=== PATIENT | male | born 1985 | race Caucasian/White ===

== ENCOUNTER 2023-08-14 21:20 | Inpatient (IN) | payer BC, OTHER ==
--- NOTE | 2023-08-14 22:21 | RAD REPORT ---
EXAM DESCRIPTION: Shivam Single View08/14/2023 10:05 pm CLINICAL HISTORY: Syncope COMPARISON: February 2020. FINDINGS: The lungs appear clear of acute infiltrate. The heart is normal size Postsurgical changes involve spine IMPRESSION: No acute abnormalities displayed
--- NOTE | 2023-08-14 22:34 | RAD REPORT ---
EXAM DESCRIPTION: CT - Head Brain Wo Cont - 08/14/2023 10:20 pm CLINICAL HISTORY: Syncope COMPARISON: February 2023 TECHNIQUE: Computed axial tomography of the head was obtained. IV contrast was not requested. All CT scans are performed using dose optimization technique as appropriate and may include automated exposure control or mA/KV adjustment according to patient size. FINDINGS: An intracranial bleed is not seen The ventricles are normal in caliber No significant hypodense areas within the brain visualized No extra-axial fluid collection is noted. Fluid within the sinuses/ mastoids is not seen IMPRESSION: No acute intracranial abnormality is seen If patient's symptoms persist MRI of the brain would be recommended
[2023-08-14 22:43] LABS: Absolute Lymphocytes (CBC) 0.6 K/uL (0.7-4.9); Lymphocytes % 2.6 % (15.3-44.8); MCV 86.5 fL (80-100); MPV 7.7 fL (7.6-11.3); Platelets 291 thou/uL (152-406); RBC Red Blood Cell Count 5.31 M/uL (4.33-5.43)
[2023-08-14 22:45] LABS: Protime INR 1.14
[2023-08-14 23:02] LABS: Albumin 3.4 g/dL (3.4-5.0); Bilirubin Direct 0.1 mg/dL (0-0.2); Bilirubin Indirect, Calculated 0.3 mg/dL (0.2-0.8); Bilirubin Total 0.4 mg/dL (0.2-1.0); Magnesium 2.3 mg/dL (1.6-2.4); Troponin High Sensitivity 3.8 pg/mL (<58.9)
--- NOTE | 2023-08-14 23:44 | P.HP ---
Certification for Inpatient Patient admitted to: Inpatient With expected LOS: <2 Midnights Patient will require the following post-hospital care: None Practitioner: I am a practitioner with admitting privileges, knowledge of patient current condition, hospital course, and medical plan of care. Services: Services provided to patient in accordance with Admission requirements found in Title 42 Section 412.3 of the Code of Federal Regulations Patient History Date of Service: 08/15/23 Reason for admission: Lethargic, sepsis History of Present Illness: 38-year-old male with a past medical history of cerebral palsy, scoliosis with lumbar instrumentation, spasticity, constipation presents to the emergency room with syncopal episode. Father is at bedside is primary historian reports patient is wheelchair-bound, is normally alert and oriented, patient has a baclofen pump for spasticity, father reports patient takes Adderall to help increase alertness. Father reports patient was in bed and was difficult to arouse this evening. No reported recent infection, chills, dysuria, chest pain, shortness of breath, cough. Father report reports patient eats too quickly occasionally coughs with meals due to eating too fast. Patient is alert oriented x3 on evaluation. Scoliosis with lumbar instrumentation. Noted internal baclofen pump for spasticity. Patient has returned to baseline. Father reports called EMS. ER laboratory evaluation BP 103 / 66; Pulse 103; Resp 18; Temp 98.1; Pulse Ox 98% 0 Rate is 99 beats/min. Rhythm is regular, Normal Sinus Rhythm. QRS [place] is Normal. SD interval is shortened. QRS interval is normal. QT interval is normal. No Q waves. T waves are Normal. No ST changes noted. Clinical impression: No evidence of ischemia. Plan to admit for sepsis, syncopal episode. Sepsis, unspecified organism, cerebral palsy, physical deconditioning, complications of immobility. Laboratory evaluation leukocytosis WBCs 24.10 early left shift 91.7, CMP mild hyponatremia at 135, mild hypocalcemia 8.4, lactic was normal at 1.9, UA is pending, SARS-CoV-2 was negative chest x-ray no acute abnormality, CT of the head, no acute abnormality noted. Allergies Penicillins Adverse Reaction (Verified 03/09/21 14:28) Nausea/Vomiting Home Medications: Dextroamphetamine/Amphetamine [Adderall 20 mg Tablet] 20 mg PO BID 03/12/21 - Past Medical/Surgical History Diabetic: No -: Cerebral Palsy -: Paraplegia - Social History Smoking Status: Never smoker Alcohol use: No CD- Drugs: No Caffeine use: No Place of Residence: Home Review of Systems 10-point ROS is otherwise unremarkable Physical Examination - Physical Exam General: Alert, In no apparent distress, Other (Cerebral palsy, responsive verbal,) HEENT: Atraumatic, Normocephalic, PERRLA Neck: Supple, 2+ carotid pulse no bruit, JVD not distended Respiratory: Clear to auscultation bilaterally, Normal air movement Cardiovascular: No edema, Normal pulses, Regular rate/rhythm Capillary refill: <2 Seconds Gastrointestinal: Normal bowel sounds, Soft and benign Musculoskeletal: No clubbing, No swelling, Scoliosis, Other (Total assist, complete bedrest or wheelchair-bound,) Neurological: Abnormal speech, Abnormal strength, Abnormal tone (Spasticity with internal baclofen pump) - Studies Laboratory Data (last 24 hrs) 08/14/23 08/14/23 08/14/23 22:27 22:27 22:27 WBC 24.10 H Hgb 15.6 Hct 46.0 Plt Count 291 PT 12.5 INR 1.14 Sodium 137 Potassium 4.0 BUN 15 Creatinine 0.70 Glucose 135 H Magnesium 2.3 Total Bilirubin 0.4 AST 39 H ALT 60 Alkaline Phosphatase 71 Assessment and Plan - Plan Assessment and plan Sepsis without shock unknown source of infection acute Hypocalcemia acute Hyponatremia acute Cerebral palsy, total care chronic physical deconditioning, complications of immobility. Chronic Spasticity on the baclofen pump Scoliosis-spinal instrumentation Wheelchair dependent Constipation Assessment and plan Sepsis without shock unknown source of infection Blood cultures, urine cultures, IV antibiotics, infectious disease consult BP 103 / 66; Pulse 103; Resp 18; Temp 98.1; Pulse Ox 98% 0 Rate is 99 beats/min. Rhythm is regular, Normal Sinus Rhythm. QRS [place] is Normal. SD interval is shortened. QRS interval is normal. QT interval is normal. No Q waves. T waves are Normal. No ST changes noted. Clinical impression: No evidence of ischemia. WBCs 24.10 early left shift 91.7, lactic normal 1.9 Trend cultures UA is pending, SARS-CoV-2 was negative chest x-ray no acute abnormality, CT of the head, no acute abnormality noted. Hypocalcemia Hyponatremia CMP mild hyponatremia at 135, mild hypocalcemia 8.4 Trend electrolytes replace as needed Cerebral palsy Constipation Spasticity on the baclofen pump, as needed stool softeners Scoliosis-spinal instrumentation Wheelchair dependent Fall precautions, total care, set up for meals Soft diet Full code DVT SCDs Discharge Plan: Home Plan to discharge in: 48 Hours - Advance Directives Does patient have a Living Will: No Does patient have a Durable POA for Healthcare: No - Code Status/Comfort Care Code Status Assessed: Yes Code Status: Full Code Physician Review: Patient Assessed, Agree with Above Assessment and Plan Critical Care: No Time Spent Managing Pts Care (In Minutes): 50
[2023-08-14] MEDS ORDERED: NA CHLORIDE 0.9% 250 ML ONE (23:47)
[2023-08-14] MEDS ORDERED: VANCOMYCIN 1 GM/VIAL ONE (23:47)
[2023-08-14] MEDS ORDERED: NA CHLORIDE 0.9% 50 ML ONE (23:47)
[2023-08-14] MEDS ORDERED: CEFTRIAXONE 1000 MG/VIAL ONE (23:47)
[2023-08-14] MEDS ORDERED: NA CHLORIDE 0.9% 1,000 ML ONE (23:47)
[2023-08-14] MEDS ORDERED: D5.45NS W/KCL 20MEQ 1,000 ML IV ONE (23:48)
--- NOTE | 2023-08-15 00:07 | ER ---
Nurse's Notes [facility] Name: Johann Garrison Age: 38 yrs Sex: Male : 1985 Arrival Date: 08/14/2023 Time: 21:20 Bed 5 Private MD: Diagnosis: Sepsis, unspecified organism;Syncope, episode of unresponsiveness, cerebral palsy, physical deconditioning, complications of immobility Presentation: 08/14 21:25 Chief complaint: EMS states: WITNESSED SYNCOPE AT HOME. Coronavirus screen: At this bp time, the client does not indicate any symptoms associated with coronavirus-19. Ebola Screen: No symptoms or risks identified at this time. Initial Sepsis Screen: Does the patient meet any 2 criteria? No. Patient's initial sepsis screen is negative. Does the patient have a suspected source of infection? No. Patient's initial sepsis screen is negative. Risk Assessment: Do you want to hurt yourself or someone else? Patient reports no desire to harm self or others. Onset of symptoms was August 14, 2023 at 21:00. 21:25 Method Of Arrival: EMS: [facility] bp 21:25 Acuity: VINAY 3 bp Triage Assessment: 21:26 General: Appears in no apparent distress. Behavior is appropriate for age. Pain: Denies bp pain. Neuro: Level of Consciousness is awake, alert, obeys commands, Oriented to Appropriate for age. Historical: - Allergies: 21:26 PENICILLINS; bp - Home Meds: 21:26 baclofen pump LLQ [Active]; Adderall XR Oral [Active]; bp - PMHx: 21:26 scoliosis; Cerebral palsy; bp - PSHx: 21:26 back sx; bp - Immunization history:: Adult Immunizations up to date. - Social history:: Smoking status: Patient denies any tobacco usage or history of. - Family history:: not pertinent. Screenin/05 00:54 [facility] ED Fall Risk Assessment (Adult) History of falling in the last 3 months, jb4 including since admission No falls in past 3 months (0 pts) Confusion or Disorientation No (0 pts) Score/Fall Risk Level 0 - 2 = Low Risk Oriented to surroundings, Maintained a safe environment. Abuse screen: Denies threats or abuse. Nutritional screening: No deficits noted. Tuberculosis screening: No symptoms or risk factors identified. Assessment: 08/14 22:38 Reassessment: Pt resting in bed with family at the bedside. Respirations are even and jb4 unlabored with no s/s of pain or distress noted. Vital Signs: 21:24 BP 103 / 66; Pulse 103; Resp 18; Temp 98.1; Pulse Ox 98% on R/A; oe 21:25 BP 110 / 60; Pulse 100; Resp 20; Temp 97.4; Pulse Ox 100% ; bp 22:39 BP 91 / 61; Pulse 101; Resp 15; Pulse Ox 98% on R/A; jb4 23:00 BP 92 / 60; Pulse 99; Resp 16; Pulse Ox 97% on R/A; jb4 10 00:54 BP 124 / 74; Pulse 102; Resp 18; Pulse Ox 99% on R/A; jb4 ED Course: 08/14 21:21 Patient arrived in ED. rv1 21:23 Prince Rodriguez, RN is Primary Nurse. bp 21:26 Triage completed. bp 21:26 Arm band placed on. bp 21:29 Declan Boucher MD is Attending Physician. sp4 22:05 XRAY Chest (1 view) In Process Unspecified. EDMS 22:21 CT Head Brain wo Cont In Process Unspecified. EDMS 22:38 Initial lab(s) drawn, by me, sent to lab. Inserted saline lock: 24 gauge in right hand, jb4 using aseptic technique. Blood collected. 08/15 00:05 Augusto Hensley is Hospitalizing Provider. sp4 00:54 Patient has correct armband on for positive identification. Bed in low position. Call jb4 light in reach. Side rails up X 1. Client placed on continuous cardiac and pulse oximetry monitoring. NIBP monitoring applied. 00:54 No provider procedures requiring assistance completed. Patient admitted, IV remains in jb4 place. Administered Medications: 08/14 23:44 Drug: NS 0.9% IV 1000 ml IV at 1 bolus Per protocol; 1000 mL bolus Route: IV; Rate: 1 jb4 bolus; Site: right hand; 23:45 Drug: Rocephin - Rocephin (cefTRIAXone) IVPB 1 grams IVPB once over 30 mins; (mix in 50 jb4 mL NS) Route: IVPB; Infused Over: 30 mins; Site: right hand; 08/15 00:42 Drug: vancoMYCIN IVPB 1 grams IVPB once over 2 hrs Route: IVPB; Infused Over: 2 hrs; jb4 Site: right hand; 01:40 Not Given (Fluids sent up with Ptt): d5-1/2 ns with kcl20 meq/l 1000 ml IV at 100 ml/hr jb4 continuous Outcome: 00:06 Decision to Hospitalize by Provider. sp4 01:25 Admitted to Med/surg accompanied by tech, via stretcher, room 218, with chart, Report jb4 called to N[place]omy 01:25 Condition: stable 01:25 Discharge instructions given to family, Instructed on the need for admit, Demonstrated understanding of instructions, 01:26 Patient left the ED. jb4 Signatures: Dispatcher [employer] EDMannie Padilla, RN RN jb4 Doug Winkler Brian, RN RN Kasie Ardon rv1 Declan Boucher MD MD sp4 Corrections: (The following items were deleted from the chart) 01:26 01:25 Admitted to Med/surg accompanied by tech, via stretcher, room 219, with chart, jb4 Report called to Nahomy jb4
--- NOTE | 2023-08-15 00:07 | EDPHYS ---
Physician Documentation [facility] Name: Johann Garrison Age: 38 yrs Sex: Male : 1985 Arrival Date: 08/14/2023 Time: 21:20 Bed 5 Private MD: ED Physician Declan Boucher HPI: 08/14 21:29 This 38 yrs old Male presents to ER via EMS with complaints of syncope. sp4 22:30 38-year-old male with a history of cerebral palsy, wheelchair-bound, completely sp4 dependent on caretakers, very minor use of bilateral hands, presents with report of syncope and unresponsiveness at home at 8:30 PM lasting several minutes. Patient's father noted that patient was unresponsive after he is evening toilet and teeth brushing were complete. Patient was then given [id number] respirations and chest compressions which brought about alertness. At this time patient is verbal and has no complaints. Patient is alert and oriented x3. Mental status is normal at this time as reported by the patient's parents. Patient has several different physicians total of 7 physicians could take care of him. Patient has baclofen pump for muscle spasticity which is implanted underneath left lower abdominal skin. Baclofen pump leads directly to the spinal canal. Patient also takes Adderall daily to counteract drowsiness caused by baclofen. No other medications reported. Patient had similar episode on 02/19/2023, when he was seen at this emergency room and released home after work-up was normal. . Historical: - Allergies: 21:26 PENICILLINS; bp - Home Meds: 21:26 baclofen pump LLQ [Active]; Adderall XR Oral [Active]; bp - PMHx: 21:26 scoliosis; Cerebral palsy; bp - PSHx: 21:26 back sx; bp - Immunization history:: Adult Immunizations up to date. - Social history:: Smoking status: Patient denies any tobacco usage or history of. - Family history:: not pertinent. ROS: 22:30 Constitutional: Negative for fever, chills, and weight loss, positive for syncopal sp4 episode and unresponsiveness Eyes: Negative for injury, pain, redness, and discharge, 22:30 All other systems are negative, Exam: 22:30 Constitutional: This is a permanently paralyzed male, awake, alert, and in no acute sp4 distress. Patient has multiple contractures to lower extremities and diffuse muscular atrophy secondary to immobility, stigmata of cerebral palsy, large spinal scar from prior scoliosis Suero ghulam fixation. Patient is verbal able to communicate his name date of and location. Patient is able to answer basic questions. Mental status reported to be normal by patient's parents. Patient has signs of severe physical debility secondary to cerebral palsy, no signs of pressure sores, incontinent of bowel and bladder, wears depends. Head/Face: Normocephalic, atraumatic. Eyes: Pupils equal round and reactive to light, extra-ocular motions intact. Lids and lashes normal. Conjunctiva and sclera are not injected. Cornea within normal limits. Periorbital areas with no swelling, redness, or edema. ENT: Nares patent. No nasal discharge, no septal abnormalities noted. Tympanic membranes are normal and external auditory canals are clear. Oropharynx with no redness, swelling, or masses, exudates, or evidence of obstruction, uvula midline. Mucous membranes moist. Neck: Trachea midline, no thyromegaly or masses palpated, and no cervical lymphadenopathy. Supple, range of motion somewhat restricted within parameters of chronic immobility Chest/axilla: Normal chest wall appearance and motion. Nontender with no deformity. No lesions are appreciated. Cardiovascular: Regular rate and rhythm with a normal S1 and S2. No gallops, murmurs, or rubs. Normal PMI, no JVD. No pulse deficits. Respiratory: Lungs have equal breath sounds bilaterally, clear to auscultation and percussion. No rales, rhonchi or wheezes noted. No increased work of breathing, no retractions or nasal flaring. Abdomen/GI: Soft, non-tender, with normal bowel sounds. No distension or tympany. No guarding or rebound. No evidence of tenderness throughout. Left lower abdominal quadrant contains implanted baclofen pump. Back: No spinal tenderness. No costovertebral tenderness. Extensive scar from prior spinal surgery via Suero ghulam fixation of scoliosis Male : Normal genitalia with no discharge or lesions. Circumcised male, no inguinal hernias, normal femoral pulses, mild abrasion to the suprapubic area Skin: Warm, dry with normal turgor. Normal color with no rashes, no lesions, and no evidence of cellulitis. MS/ Extremity: Pulses equal, no cyanosis. Diffuse muscular atrophy secondary to immobility, bilateral upper and lower extremity contractures secondary to cerebral palsy and immobility. Neuro: Awake and alert, GCS 15, oriented to person, place, and situation, exam limited secondary to cerebral palsy and prolonged immobility, no new neurologic deficits have been reported Psych: Awake, alert, with orientation to person, place , Behavior, mood, and affect are within normal limits 22:30 ECG was reviewed by the Attending Physician. [id number], he is normal sinus rhythm with a sp4 rate of 99, there is short OK, otherwise EKG is normal, no ectopy, no ST elevation or depression Vital Signs: 21:24 BP 103 / 66; Pulse 103; Resp 18; Temp 98.1; Pulse Ox 98% on R/A; oe 21:25 BP 110 / 60; Pulse 100; Resp 20; Temp 97.4; Pulse Ox 100% ; bp 22:39 BP 91 / 61; Pulse 101; Resp 15; Pulse Ox 98% on R/A; jb4 23:00 BP 92 / 60; Pulse 99; Resp 16; Pulse Ox 97% on R/A; jb4 08/15 00:54 BP 124 / 74; Pulse 102; Resp 18; Pulse Ox 99% on R/A; jb4 MDM: 08/14 21:51 Patient medically screened. sp4 23:26 Differential Diagnosis altered mental status, sepsis, flu, Syncope, seizure . Data sp4 reviewed: vital signs, nurses notes, EMS record, old medical records, lab test result(s), EKG, radiologic studies. ED course: EXAM DESCRIPTION: [place] Single View08/14/2023 10:05 pm CLINICAL HISTORY: Syncope COMPARISON: February 2020. FINDINGS: The lungs appear clear of acute infiltrate. The heart is normal size Postsurgical changes involve spine IMPRESSION: No acute abnormalities displayed. ED course: CT - EXAM DESCRIPTION: CT - Head Brain Wo Cont - 08/14/2023 10:20 pm CLINICAL HISTORY: Syncope COMPARISON: February 2023 TECHNIQUE: Computed axial tomography of the head was obtained. IV contrast was not requested. All CT scans are performed using dose optimization technique as appropriate and may include automated exposure control or mA/KV adjustment according to patient size. FINDINGS: An intracranial bleed is not seen The ventricles are normal in caliber No significant hypodense areas within the brain visualized No extra-axial fluid collection is noted. Fluid within the sinuses/ mastoids is not seen IMPRESSION: No acute intracranial abnormality is seen If patient's symptoms persist MRI of the brain would be recommended.. 08/14 21:29 Order name: Basic Metabolic Panel; Complete Time: 23:05 sp4 08/14 21:29 Order name: CBC with Diff; Complete Time: 23:05 4 08/14 21:29 Order name: LFT's; Complete Time: 23:05 4 08/14 21:29 Order name: Magnesium; Complete Time: 23:05 sp4 08/14 21:29 Order name: NT PRO-BNP; Complete Time: 23:05 4 08/14 21:29 Order name: PT-INR; Complete Time: 23:05 [facility] 08/14 21:29 Order name: Troponin HS; Complete Time: 23:05 [facility] 08/14 21:50 Order name: Lactate w/ 2H reflex if indic.; Complete Time: 23:05 [facility] 08/14 21:51 Order name: Creatine Phosphokinase; Complete Time: 23:05 [facility] 08/14 23:10 Order name: Urinalysis W/Microscopic sp 08/14 23:11 Order name: Blood Culture Adult (2) [facility] 08/14 23:20 Order name: Procalcitonin; Complete Time: 00:06 [facility] 08/14 23:20 Order name: CRP; Complete Time: 00:06 [facility] 08/14 23:21 Order name: COVID-19 SARS RT PCR; Complete Time: 00:06 [facility] 08/14 23:21 Order name: Influenza Screen (a \T\ B) [facility] 08/14 23:46 Order name: Lactate w/ 2H reflex if indic. [facility] 08/14 21:29 Order name: XRAY Chest (1 view); Complete Time: 23:05 4 08/14 21:51 Order name: CT Head Brain wo Cont; Complete Time: 23:05 4 08/14 21:29 Order name: EKG; Complete Time: 21:30 sp4 08/14 23:38 Order name: CONS Physician Consult [facility] 08/14 21:29 Order name: Cardiac monitoring; Complete Time: 22:14 4 08/14 21:29 Order name: EKG - Nurse/Tech; Complete Time: 22:14 sp4 08/14 21:29 Order name: IV Saline Lock; Complete Time: 22:37 sp4 08/14 21:29 Order name: Labs collected and sent; Complete Time: 22:37 sp4 08/14 21:29 Order name: O2 Per Protocol; Complete Time: 22:14 sp4 08/14 21:29 Order name: O2 Sat Monitoring; Complete Time: 22:14 sp4 08/14 23:19 Order name: Cath; Complete Time: 00:55 sp4 EC:30 Rate is 99 beats/min. Rhythm is regular, Normal Sinus Rhythm. QRS [place] is Normal. OK sp4 interval is shortened. QRS interval is normal. QT interval is normal. No Q waves. T waves are Normal. No ST changes noted. Clinical impression: No evidence of ischemia. Interpreted by me. Administered Medications: 23:44 Drug: NS 0.9% IV 1000 ml IV at 1 bolus Per protocol; 1000 mL bolus Route: IV; Rate: 1 jb4 bolus; Site: right hand; 23:45 Drug: Rocephin - Rocephin (cefTRIAXone) IVPB 1 grams IVPB once over 30 mins; (mix in 50 jb4 mL NS) Route: IVPB; Infused Over: 30 mins; Site: right hand; 08/15 00:42 Drug: vancoMYCIN IVPB 1 grams IVPB once over 2 hrs Route: IVPB; Infused Over: 2 hrs; jb4 Site: right hand; 01:40 Not Given (Fluids sent up with Ptt): d5-1/2 ns with kcl20 meq/l 1000 ml IV at 100 ml/hr jb4 continuous Disposition Summary: 08/15/23 00:06 Hospitalization Ordered Notes: Hospitalization Status: Inpatient Admission sp4 Provider: Augusto Hensley spSvetlana Location: Telemetry/MedSurg (Inpatient) sp4 Condition: Fair sp4 Problem: new sp4 Symptoms: have improved sp4 Bed/Room Type: Standard sp4 Room Assignment: 218(08/15/23 00:10) Diagnosis - Sepsis, unspecified organism sp4 - Syncope, episode of unresponsiveness, cerebral palsy, physical deconditioning, sp4 complications of immobility Forms: - Medication Reconciliation Form sp4 - SBAR form sp4 - Leadership Thank You Letter sp4 Signatures: Dispatcher [employer] Evita Forbes RN RN cg Bryson, James, RN RN jb4 Prince Rodriguez RN RN bp Declan Boucher MD MD sp4 Corrections: (The following items were deleted from the chart) 00:10 00:06 sp4
[2023-08-15] MEDS ORDERED: ONDANSETRON 4 MG/2 ML VIAL IV PRN (01:17)
[2023-08-15 01:33] LABS: Specific Gravity 1.026 (1.005-1.030); Urine Bacteria <20 /HPF (<20); Urine Bilirubin NEGATIVE (Negative); Urine Blood Negative (Negative); Urine Clarity Extremely Turbid (Clear); Urine Color Yellow (Yellow); Urine Glucose NEGATIVE (Negative); Urine Mucus Slight /HPF (None Seen); Urine Protein TRACE (Negative); Urine Urobilinogen Normal (Normal); Urine pH 7.5 (5.0-7.0)
[2023-08-15 01:38] VITALS: O2SAT 99
[2023-08-15 02:26] VITALS: BMI 18.6
[2023-08-15] MEDS: PIPER TAZO 3.375 GM in NA CHLORIDE 0.9% 100 ML IV SCH ×2 (03:47→09:00)
[2023-08-15] MEDS: NA CHLORIDE 0.9% 1,000 ML IV SCH ×2 (03:48→23:01)
[2023-08-15 04:22] LABS: Bilirubin Total 0.4 mg/dL (0.2-1.0); Magnesium 2.1 mg/dL (1.6-2.4); Phosphorus 3.4 mg/dL (2.5-4.9); Potassium 3.7 mEq/L (3.5-5.1); Protein, Total 6.3 g/dL (6.4-8.2)
--- NOTE | 2023-08-15 08:37 | P.CNS ---
Date of Consult: 08/15/23 Reason for Consult: leukocytosis Chief Complaint: Lethargic, sepsis History of Present Illness: Patient is a 38 yo male with a past medical history of cerebral palsy, scoliosis with lumbar instrumentation who presented to the ED following a syncopal episode. CT head without acute findings. Leukocytosis, tachycardic, altered mental status/lethargy. Patient was admitted for sepsis, syncopal episode. Infectious disease was consulted. Allergies Penicillins Adverse Reaction (Verified 08/15/23 01:58) Nausea/Vomiting Home medications list reviewed: Yes Home Medications: Dextroamphetamine/Amphetamine [Adderall 20 mg Tablet] 20 mg PO BID 03/12/21 - Past Medical/Surgical History Diabetic: No -: Cerebral Palsy -: Paraplegia - Social History Alcohol use: No CD- Drugs: No Caffeine use: No Place of Residence: Home Review of Systems is unable to be obtained Physical Examination Temp Pulse Resp BP Pulse Ox 98.1 F 95 H 16 98/55 L 96 08/15/23 04:00 08/15/23 04:00 08/15/23 04:00 08/15/23 04:00 08/15/23 04:00 General: In no apparent distress Neck: Supple, JVD not distended Respiratory: Clear to auscultation bilaterally, Normal air movement, Other (on room air) Cardiovascular: No edema, Normal pulses, Regular rate/rhythm Gastrointestinal: Normal bowel sounds, Soft and benign Musculoskeletal: Scoliosis, Other (wheelchair/bedbound) Integumentary: Other (internal baclofen pump left lower abdomen) Neurological: Abnormal speech Laboratory Data - Reviewed Microbiology Data - Reviewed Imagings Data: - Reviewed Conclusions/Impression: Problem List Leukocytosis Cerebral palsy Scoliosis with lumbar instrumentation physical deconditioning Mild PCM - Leukocytosis (WBC 24.1) - Afebrile - Urinalysis 08/15: extremely turbid, LE 250, RBC 11-20, WBC >50 - Urine culture 08/15: pending - Blood cultures 08/14: pending - Negative Covid, negative influenza A&B - Chest XR 08/14: "No acute abnormalities displayed" - Head CT 08/14: "No acute intracranial abnormality is seen" - Currently on Rocephin (08/15) Recommendations - Continue Rocephin for now. - Awaiting blood and urine culture results. will adjust antibiotics as appropriate. - Monitor WBC and fever trends - Supportive care and nutritional supplementation Case discussed with Mouna Cade
[2023-08-15] MEDS: DOCUSATE NA 50 MG/5 ML UCUP PO SCH ×2 (09:00→23:02)
[2023-08-15] MEDS: AMPHETAMINE PO SCH ×2 (09:00→21:00)
[2023-08-15] MEDS: DEXTROAMPHETAMINE PO SCH ×2 (09:00→21:00)
--- NOTE | 2023-08-15 13:27 | P.PN ---
Subjective Date of Service: 08/15/23 Chief Complaint: Lethargic, sepsis Patient with cerebral palsy and not able to give any subjective complaint. He is awake and interactive, gives yes or no answers. No fever since admission. Physical Examination - Vital Signs Temperature: 98.1 F Blood Pressure: 98/55 Pulse: 95 Respirations: 16 Pulse Ox (%): 96 - Studies Laboratory Data (last 24 hrs) 08/14/23 08/14/23 08/14/23 22:27 22:27 22:27 WBC 24.10 H Hgb 15.6 Hct 46.0 Plt Count 291 PT 12.5 INR 1.14 Sodium 137 Potassium 4.0 BUN 15 Creatinine 0.70 Glucose 135 H Magnesium 2.3 Total Bilirubin 0.4 AST 39 H ALT 60 Alkaline Phosphatase 71 Microbiology Data (last 24 hrs): 08/14/23 23:28 Blood - Blood Anaerobic Blood Culture - Final 08/14/23 23:28 Nasopharnyx Influenza Type A Antigen Screen - Final 08/14/23 23:28 Nasopharnyx Influenza Type B Antigen Screen - Final Assessment And Plan - Plan Physical Exam General: Awake, In no apparent distress. Neck: Supple, JVD not distended Respiratory: Clear to auscultation bilaterally, Normal air movement Cardiovascular: No edema, Normal pulses, Regular rate/rhythm Gastrointestinal: Normal bowel sounds, Soft and benign Musculoskeletal: No clubbing, No swelling, Scoliosis, Other (Total assist, complete bedrest or wheelchair-bound,) Neurological: Abnormal speech, cerebral palsy with quadriplegia. Diagnosis Sepsis without shock. UTI Cerebral palsy Spastic quadriplegia. Scoliosis-spinal instrumentation Wheelchair dependent Constipation Assessment and plan Sepsis without shock/metabolic encephalopathy Likely secondary to UTI. Blood cultures, urine cultures are pending. Continue broad-spectrum antibiotics. Monitor CBC to follow leukocytosis. Cerebral palsy Constipation Spasticity on the baclofen pump Constipation prophylaxis with stool softener Scoliosis-spinal instrumentation Wheelchair dependent Fall precautions. Soft diet Full code DVT SCDs Discharge Plan: Home
[2023-08-15] MEDS: CEFTRIAXONE 1,000 MG in NA CHLORIDE 0.9% 50 ML IVPB SCH (14:00)
--- NOTE | 2023-08-15 16:58 | EKG ---
Test Date: 2023-08-14 Test Time: 22:09:03 Chief Operator Synthesis: TORRIE MEASUREMENT RESULTS: Intervals: Rate: 99 TN: 110 QRSD: 76 QT: 344 QTc: 441 [place]: P: 26 TN: 110 QRS: 51 T: 50 INTERPRETIVE STATEMENTS: Sinus rhythm with short TN Possible Inferior infarct, age undetermined Abnormal ECG Compared to ECG 02/19/2023 23:09:13 Short TN interval now present Myocardial infarct finding now present Left-axis deviation no longer present T-wave abnormality no longer present Electronically Signed On 08-15-23 16:56:17 CDT by Carlos Enrique Hwang
[2023-08-16 04:21] LABS: Absolute Lymphocytes (CBC) 2.1 K/uL (0.7-4.9); Hematocrit 37.3 % (39.6-49.0); Lymphocytes % 11.5 % (15.3-44.8); MCV 86.3 fL (80-100); MPV 7.8 fL (7.6-11.3); Platelets 257 thou/uL (152-406); RBC Red Blood Cell Count 4.32 M/uL (4.33-5.43)
[2023-08-16 04:39] LABS: Magnesium 2.1 mg/dL (1.6-2.4); Phosphorus 3.3 mg/dL (2.5-4.9); Potassium 3.6 mEq/L (3.5-5.1)
--- NOTE | 2023-08-16 08:36 | P.PN ---
Date of Service: 08/16/23 Chief Complaint: Lethargic, sepsis Subjective: Improving. Patient seen and examined in room. Mother and caregiver at bedside. No acute events reported overnight. Physical Examination Temp Pulse Resp BP Pulse Ox 98.3 F 87 18 120/71 94 08/16/23 04:00 08/16/23 04:00 08/16/23 04:00 08/16/23 04:00 08/16/23 04:00 General: In no apparent distress Neck: Supple, JVD not distended Respiratory: Clear to auscultation bilaterally, Normal air movement. Unlabored respirations on room air. Cardiovascular: No edema, Normal pulses, Regular rate/rhythm Gastrointestinal: Normal bowel sounds, Soft and benign Musculoskeletal: wheelchair/bedbound Integumentary: internal baclofen pump left lower abdomen Neurological: cerebral palsy Laboratory Data - Reviewed Microbiology Data - Reviewed Imagings Data: - Reviewed Medications List: Reviewed Assessment and Plan Problem List Sepsis secondary to urinary tract infection Cerebral palsy Scoliosis with lumbar instrumentation physical deconditioning Mild PCM Sepsis secondary to urinary tract infection - Leukocytosis improving (WBC 24.1 -> 18.4) - Afebrile. Tmax 99 F - Urinalysis 08/15: extremely turbid, LE 250, RBC 11-20, WBC >50 - Urine culture 08/15: 3+ gram negative rods ; colony count >100,000 CFU/mL - Blood cultures 08/14: in process - Currently on Rocephin (08/15) - Negative Covid, negative influenza A&B - Chest XR 08/14: "No acute abnormalities displayed" - Head CT 08/14: "No acute intracranial abnormality is seen" Recommendations - UTI: Continue antibiotic therapy for 5-7 days. Currently on Rocephin,continue for now. - Awaiting blood and urine culture results. will adjust antibiotics as appropriate. - Monitor WBC and fever trends - Supportive care and nutritional supplementation - Pressure offloading measures. Turn patient Q2H. Low air-loss mattress. Case discussed with Mouna Cade
[2023-08-16] MEDS: AMPHETAMINE PO SCH ×2 (09:00→21:00)
[2023-08-16] MEDS: DEXTROAMPHETAMINE PO SCH ×2 (09:00→21:00)
[2023-08-16] MEDS: DOCUSATE NA 50 MG/5 ML UCUP PO SCH ×2 (09:00→21:27)
[2023-08-16] MEDS: CEFTRIAXONE 1,000 MG in NA CHLORIDE 0.9% 50 ML IVPB SCH (10:00)
[2023-08-16] MEDS: NA CHLORIDE 0.9% 1,000 ML IV SCH ×2 (12:07→17:26)
--- NOTE | 2023-08-16 15:01 | P.PN ---
Subjective Date of Service: 08/16/23 Chief Complaint: Lethargic, sepsis Patient with cerebral palsy and not able to give any subjective complaint. He is awake and interactive. No changes from yesterday. Patient tolerates his meal. Physical Examination - Vital Signs Temperature: 98.5 F Blood Pressure: 119/72 Pulse: 109 Respirations: 15 Pulse Ox (%): 96 - Studies Microbiology Data (last 24 hrs): 08/14/23 23:24 Blood - Blood Anaerobic Blood Culture - Final 08/14/23 23:28 Blood - Blood Anaerobic Blood Culture - Final Assessment And Plan - Plan Physical Exam General: Awake, In no apparent distress. Neck: Supple, JVD not distended Respiratory: Clear to auscultation bilaterally, Normal air movement Cardiovascular: No edema, Normal pulses, Regular rate/rhythm Gastrointestinal: Normal bowel sounds, Soft and benign Musculoskeletal: No swelling, Scoliosis, quadriplegia Neurological: Abnormal speech, cerebral palsy with quadriplegia. Diagnosis Sepsis without shock. UTI Cerebral palsy Spastic quadriplegia. Scoliosis-spinal instrumentation Wheelchair dependent Constipation Assessment and plan Sepsis without shock/metabolic encephalopathy Likely secondary to UTI. Blood cultures: No growth. Urine culture; GNR Continue broad-spectrum antibiotics. Leukocytosis is improving. Monitor CBC to follow leukocytosis. Cerebral palsy Constipation Spasticity on the baclofen pump Constipation prophylaxis with stool softener Scoliosis-spinal instrumentation Wheelchair dependent Fall precautions. Soft diet Full code DVT SCDs Discharge Plan: Home
[2023-08-17 04:23] LABS: Absolute Lymphocytes (CBC) 1.5 K/uL (0.7-4.9); Hematocrit 36.6 % (39.6-49.0); Lymphocytes % 13.8 % (15.3-44.8); MCV 86.1 fL (80-100); MPV 7.8 fL (7.6-11.3); Platelets 259 thou/uL (152-406); RBC Red Blood Cell Count 4.25 M/uL (4.33-5.43)
[2023-08-17 04:26] LABS: Magnesium 2.1 mg/dL (1.6-2.4); Phosphorus 3.5 mg/dL (2.5-4.9); Potassium 3.8 mEq/L (3.5-5.1)
[2023-08-17] MEDS: NA CHLORIDE 0.9% 1,000 ML IV SCH (06:37)
[2023-08-17] MEDS ORDERED: POTASSIUM CL SA 10 MEQ TAB PO ONE (09:00)
[2023-08-17] MEDS: DEXTROAMPHETAMINE PO SCH (09:00)
[2023-08-17] MEDS: AMPHETAMINE PO SCH (09:00)
[2023-08-17] MEDS: CEFTRIAXONE 1,000 MG in NA CHLORIDE 0.9% 50 ML IVPB SCH (09:07)
[2023-08-17] MEDS: DOCUSATE NA 50 MG/5 ML UCUP PO SCH (09:07)
[2023-08-17] MEDS ORDERED: Levofloxacin 750mg IV 750 MG/150 ML BAG IV SCH (10:00)
--- NOTE | 2023-08-17 13:36 | P.DS ---
Admission Date: 08/14/23 Discharge Date: 08/17/23 Disposition: [place] [facility] CARE Discharge Condition: FAIR Reason for Admission: Lethargic, sepsis Brief History of Present Illness: 38-year-old male with a past medical history of cerebral palsy, scoliosis with lumbar instrumentation, spastic quadriplegia presented to the emergency room with syncopal episode. Father at bedside reported patient is wheelchair-bound, is normally alert and oriented, patient has a baclofen pump for spasticity, Father reported patient takes Adderall to help increase alertness. Father reports patient was in bed and was difficult to arouse. No reported recent infection, chills, dysuria, chest pain, shortness of breath, cough. Father report reported patient eats too quickly occasionally coughs with meals due to eating too fast. Patient was awake and interactive during evaluation. Scoliosis with lumbar instrumentation. Noted internal baclofen pump for spasticity. Patient has returned to baseline. ER laboratory evaluation BP 103 / 66; Pulse 103; Resp 18; Temp 98.1; Pulse Ox 98% 0 Rate is 99 beats/min. Chest x- ray showed no acute abnormality, CT of the head, no acute abnormality noted. SARS-CoV-2 was negative. Labs showed severe leukocytosis with WBC of 24,000. Patient was admitted for further management. Hospital Course: Diagnosis Sepsis without shock. UTI Cerebral palsy Spastic quadriplegia. Scoliosis-spinal instrumentation Wheelchair dependent Constipation Patient was admitted to the medical floor and the following medical problems addressed: Sepsis without shock/metabolic encephalopathy Likely secondary to UTI. Blood cultures showed no growth, urine culture: Acinetobacter baumannii and Enterococcus faecalis isolated Both organisms sensitive to Levaquin. Patient was initially treated with IV Rocephin and transition to IV Levaquin. He had severe leukocytosis which has resolved. Patient has been afebrile and tolerating diet. Stable vitals. He is discharged with oral Levaquin Cerebral palsy Constipation Spasticity on the baclofen pump Constipation prophylaxis with stool softener Scoliosis-spinal instrumentation Wheelchair dependent Overall stable. Vital Signs/Physical Exam: Temp Pulse Resp BP Pulse Ox 97.8 F 87 16 110/70 94 08/17/23 08:00 08/17/23 08:00 08/17/23 08:00 08/17/23 08:00 08/17/23 08:00 General: Alert, In no apparent distress HEENT: Mucous membr. moist/pink Neck: JVD not distended Respiratory: Clear to auscultation bilaterally, Normal air movement Cardiovascular: No edema, Regular rate/rhythm, Normal S1 S2 Gastrointestinal: Normal bowel sounds, Soft and benign, Non-distended, No tenderness Musculoskeletal: No warmth Integumentary: No cyanosis Neurological: Other (Quadriplegia) Laboratory Data at Discharge: WBC 10.80 thou/uL (4.3-10.9) 08/17/23 03:53 Hgb 12.6 g/dL (13.6-17.9) L 08/17/23 03:53 Hct 36.6 % (39.6-49.0) L 08/17/23 03:53 Plt Count 259 thou/uL (152-406) 08/17/23 03:53 PT 12.5 SECONDS (9.5-12.5) 08/14/23 22:27 INR 1.14 08/14/23 22:27 Sodium 138 mEq/L (136-145) 08/17/23 03:53 Potassium 3.8 mEq/L (3.5-5.1) 08/17/23 03:53 BUN 7 mg/dL (7-18) 08/17/23 03:53 Creatinine 0.48 mg/dL (0.70-1.30) L 08/17/23 03:53 Glucose 97 mg/dL (74-106) 08/17/23 03:53 Phosphorus 3.5 mg/dL (2.5-4.9) 08/17/23 03:53 Magnesium 2.1 mg/dL (1.6-2.4) 08/17/23 03:53 Total Bilirubin 0.4 mg/dL (0.2-1.0) 08/15/23 03:55 AST 29 U/L (15-37) 08/15/23 03:55 ALT 53 U/L (16-61) 08/15/23 03:55 Alkaline Phosphatase 59 U/L (45-117) 08/15/23 03:55 Home Medications: Dextroamphetamine/Amphetamine [Adderall 20 mg Tablet] 20 mg PO BID 03/12/21 Docusate Sodium [Colace] 10 ml PO BID #473 ml 08/17/23 levoFLOXacin [Levaquin] 750 mg PO DAILY #10 tab 08/17/23 New Medications: Docusate Sodium [Colace] 10 ml PO BID #473 ml levoFLOXacin [Levaquin] 750 mg PO DAILY #10 tab Diet: Regular Activity: Fall precautions Followup: Raulito Huerta MD [Primary Care Provider] - Time spent managing pt's care (in minutes): 33
[2023-08-17 14:59] VITALS: BP 119/70; TEMP 98
== END 2023-08-17 16:00 | disposition home health service (06) | DRG 871 ==
LOC: ER 21:20 → ERHOLD 23:58 → 2ND 08-15 01:05
PROVIDERS: ADMIT Internal Medicine; ATTEND Internal Medicine
DX: A41.81 Sepsis due to Enterococcus (principal); G82.50 Quadriplegia, unspecified; G93.41 Metabolic encephalopathy; E87.1 Hypo-osmolality and hyponatremia; N39.0 Urinary tract infection, site not specified; E44.1 Mild protein-calorie malnutrition; Z68.1 Body mass index [BMI] 19.9 or less, adult; A41.89 Other specified sepsis; M41.9 Scoliosis, unspecified; E83.51 Hypocalcemia; K59.00 Constipation, unspecified; Z99.3 Dependence on wheelchair; Z88.0 Allergy status to penicillin; Z79.899 Other long term (current) drug therapy; Z20.822 Contact with and (suspected) exposure to COVID-19
CPT/HCPCS: 36415; 70450; 71045; 80048; 80053; 80076; 81001; 82550; 83605; 83735; 83880; 84100; 84145; 84484; 85025; 85610; 86140; 87040; 87077; 87086; 87088; 87186; 87635; 87804; 93005; 96374; 96375; 99285; J0696; J2543; J7030; J7050

== ENCOUNTER 2023-08-28 15:16 | Observation (INO) | payer BC, OTHER ==
[2023-08-28 15:51] LABS: Absolute Lymphocytes (CBC) 0.6 K/uL (0.7-4.9); Hematocrit 46.4 % (39.6-49.0); Lymphocytes % 4.7 % (15.3-44.8); MCV 86.3 fL (80-100); MPV 7.3 fL (7.6-11.3); Platelets 303 thou/uL (152-406); RBC Red Blood Cell Count 5.38 M/uL (4.33-5.43)
[2023-08-28] MEDS ORDERED: NA CHLORIDE 0.9% 1,000 ML ONE (15:57)
[2023-08-28 16:07] LABS: Albumin 3.1 g/dL (3.4-5.0); Bilirubin Total 0.5 mg/dL (0.2-1.0); Potassium 3.7 mEq/L (3.5-5.1); Protein, Total 7.2 g/dL (6.4-8.2)
[2023-08-28 16:46] LABS: Specific Gravity 1.026 (1.005-1.030); Urine Bacteria None Seen /HPF (<20); Urine Bilirubin NEGATIVE (Negative); Urine Blood Negative (Negative); Urine Clarity Turbid (Clear); Urine Color Yellow (Yellow); Urine Glucose NEGATIVE (Negative); Urine Mucus Slight /HPF (None Seen); Urine Protein TRACE (Negative); Urine RBC <5 /HPF (None Seen); Urine Urobilinogen Normal (Normal)
--- NOTE | 2023-08-28 17:34 | RAD REPORT ---
EXAM DESCRIPTION: CT - Abdomen Pelvis W Contrast - 08/28/2023 4:48 pm CLINICAL HISTORY: ILEUS COMPARISON: No comparisons TECHNIQUE: Thin cut axial CT imaging of the abdomen and pelvis was performed following intravenous a dministration of 100 mL Isovue 300. Multiplanar reformats were generated and reviewed. All CT scans are performed using dose optimization technique as appropriate and may include automated exposure control or mA/KV adjustment according to patient size. FINDINGS: Metallic streak artifact limits evaluation. No suspicious findings in the lung bases. The liver, spleen, adrenal glands, and pancreas show no suspicious findings. Gallbladder and biliary tree are also without suspicious finding. Symmetric renal function is seen with no hydronephrosis or suspicious renal mass. No dilated bowel loops. Large stool burden along the rectal bulb, and moderate stool burden elsewhere in the colon. Wall thickening noted along the rectum, may reflect an element of stercoral proctitis. No free air, free fluid or inflammatory stranding. No hernia, mass or bulky lymphadenopathy. Soft tissue nodules along the inguinal canal larger on the right, suggestive of undescended testes. T he urinary bladder is without significant finding. No suspicious bony findings. Extensive thoracolumbar fusion hardware, with pronounced dextroconvex th oracolumbar scoliosis. Left lower quadrant pain pump in place. IMPRESSION: Large stool burden in the rectum with wall thickening suggestive of stercoral proctitis. Up to moderate stool burden elsewhere in the colon. Other incidental findings as above.
--- NOTE | 2023-08-28 18:24 | ER ---
Nurse's Notes [facility] [place] Name: Johann Garrison Age: 38 yrs Sex: Male : 1985 Arrival Date: 08/28/2023 Time: 15:16 Bed 19 Private MD: Diagnosis: Constipation, ileus, generalized weakness Presentation: 08/28 15:42 Chief complaint: Parent and/or Guardian states: the patient was sent by Dr. Huerta for ap3 possible bowel obstruction. Coronavirus screen: At this time, the client does not indicate any symptoms associated with coronavirus-19. Ebola Screen: No symptoms or risks identified at this time. Risk Assessment: Do you want to hurt yourself or someone else? Patient reports no desire to harm self or others. Onset of symptoms is unknown. 15:42 Method Of Arrival: Wheelchair ap3 15:42 Acuity: VINAY 3 ap3 21:29 Initial Sepsis Screen: Does the patient meet any 2 criteria? No. Patient's initial rv sepsis screen is negative. Does the patient have a suspected source of infection? No. Patient's initial sepsis screen is negative. Historical: - Allergies: 15:42 PENICILLINS; ap3 - PMHx: 15:42 Cerebral Palsy; scoliosis; ap3 - PSHx: 15:42 back sx; ap3 - Immunization history:: Client reports receiving the 2nd dose of the Covid vaccine. - Social history:: Smoking status: Patient denies any tobacco usage or history of. Screenin:46 Abuse screen: Denies threats or abuse. Nutritional screening: No deficits noted. ap3 Tuberculosis screening: No symptoms or risk factors identified. 16:00 [facility] ED Fall Risk Assessment (Adult) History of falling in the last 3 months, db including since admission No falls in past 3 months (0 pts) Confusion or Disorientation No (0 pts) Intoxicated or Sedated No (0 pts) Impaired Gait Yes (1 pt) Mobility Assist Device Used Yes (1 pt) Altered Elimination No (0 pt) Score/Fall Risk Level 0 - 2 = Low Risk Oriented to surroundings, Maintained a safe environment. Assessment: 16:00 Reassessment:. Reassessment: Patient appears in no apparent distress at this time. db Patient and/or family updated on plan of care and expected duration. Pain level reassessed. PT SENT FOR POSSIBLE ILEUS. General: Appears in no apparent distress. comfortable, Behavior is calm, cooperative. General: Appears Behavior is. Pain:. Neuro: Level of Consciousness is awake, alert. Respiratory: Airway is patent Respiratory effort is even, unlabored, Respiratory pattern is regular, symmetrical. : No deficits noted. No signs and/or symptoms were reported regarding the genitourinary system. 17:47 Reassessment: Patient appears in no apparent distress at this time. Patient and/or db family updated on plan of care and expected duration. Pain level reassessed. FAMILY AT BEDSIDE. 18:45 Reassessment: Patient appears in no apparent distress at this time. Patient and/or db family updated on plan of care and expected duration. Pain level reassessed. PT CHANGED INTO GOWN. FAMILY AT BEDSIDE STATES THEY ARE LEAVING FOR THE NIGHT. 19:05 Reassessment: REPORT GIVEN TO MICKY MARTINEZ. db 19:05 Reassessment: Patient and/or family updated on plan of care and expected duration. Pain jj7 level reassessed. 20:30 Reassessment: PT RESTING IN BED. VS STABLE. NO NEEDS AT THIS TIME. LIGHTS DIMMED. jj7 CURTAIN OPEN AND PT IS IN SITE OF NURSING STATION. Vital Signs: 15:40 BP 111 / 73; Pulse 101; Resp 16; Pulse Ox 95% on R/A; db 15:42 BP 96 / 71; Pulse 103; Resp 19; Temp 100; Pulse Ox 96% ; Weight 52.16 kg; ap3 16:00 BP 110 / 69; Pulse 95; Resp 16; Pulse Ox 96% on R/A; db 16:30 BP 108 / 69; Pulse 99; Resp 16; Pulse Ox 96% on R/A; db 17:30 BP 108 / 66; Pulse 96; Resp 16; Pulse Ox 98% on R/A; db 18:30 BP 140 / 61; Pulse 72; Resp 18; Pulse Ox 97% on R/A; db 19:30 BP 94 / 75; Pulse 94; Resp 18; Pulse Ox 96% ; jj7 20:30 BP 103 / 70; Pulse 92; Resp 16; Pulse Ox 96% ; jj7 21:15 BP 109 / 68; Pulse 86; Resp 16; Temp 98.1; Pulse Ox 96% on R/A; rv [place] Coma Score: 21:15 Eye Response: spontaneous(4). Motor Response: obeys commands(6). Verbal Response: rv oriented(5). Total: 15. ED Course: 15:18 Patient arrived in ED. im 15:19 Maribell Malhotra FNP-C is [facility]. kb 15:19 Turner Sky MD is Attending Physician. kb 15:46 Triage completed. ap3 15:46 Arm band placed on right wrist. ap3 15:47 Patient has correct armband on for positive identification. Bed in low position. Call ap3 light in reach. Side rails up X2. Adult w/ patient. Pulse ox on. NIBP on. 15:47 Inserted saline lock: 22 gauge in right forearm, using aseptic technique. Blood ds4 collected. 16:49 CT Abd/Pelvis - IV Contrast Only In Process Unspecified. EDMS 17:17 Pallavi Matthews, RN is Primary Nurse. db 18:23 Raulito Huerta MD is Hospitalizing Provider. sp3 21:20 No provider procedures requiring assistance completed. Patient admitted, IV remains in jj7 place. 21:29 No provider procedures requiring assistance completed. Patient admitted, IV remains in rv place. Administered Medications: 15:48 Drug: NS 0.9% IV 1000 ml IV at 1 bolus Per protocol; 1000 mL bolus Route: IV; Rate: 1 kc6 bolus; Site: right forearm; Medication: 16:00 VIS not applicable for this client. db Outcome: 18:23 Decision to Hospitalize by Provider. sp3 21:29 Admitted to Med/surg accompanied by tech, via stretcher, room 209, with chart, Report rv called to WILIAN WEEKS 21:29 Condition: good 21:29 Instructed on the need for admit, 21:30 Patient left the ED. rv Signatures: Dispatcher [employer] EDSD Maribell Malhotra FNP-C CLOTH BURLER-CkEsau Briggs ds4 Deanna West RN RN ap3 Carlo Mcelroy RN RN rv Turner Sky MD MD sp3 Adelaide Del Toro RN RN kc6 James Saha RN RN jj7 Pallavi Matthews, RN RN db Luiza West im
--- NOTE | 2023-08-28 18:24 | EDPHYS ---
Physician Documentation [facility] Name: Johann Garrison Age: 38 yrs Sex: Male : 1985 Arrival Date: 08/28/2023 Time: 15:16 Bed 19 Private MD: ED Physician Turner Sky HPI: 08/28 15:51 This 38 yrs old Male presents to ER via Wheelchair with complaints of Sent by Dr. leonardo Huerta. 15:51 38-year-old male with history of cerebral palsy, scoliosis patient of Dr. Huerta who sp3 is referred here for evaluation of ileus and possible obstruction found on outpatient KUB x-ray. Patient was there for follow-up after recent hospitalization for urosepsis. Family states that patient has been decreasing responsiveness and has had decreased p.o. intake. Outpatient KUB demonstrated ileus and he was sent here for admission, CT scan and surgical consultation. Patient is nonverbal and history and physical and ROS is severely limited due to this.. Historical: - Allergies: 15:42 PENICILLINS; ap3 - PMHx: 15:42 Cerebral Palsy; scoliosis; ap3 - PSHx: 15:42 back sx; ap3 - Immunization history:: Client reports receiving the 2nd dose of the Covid vaccine. - Social history:: Smoking status: Patient denies any tobacco usage or history of. ROS: 15:52 Unable to obtain ROS due to patient is in a persistent vegetative state, sp3 Exam: 15:56 Constitutional: This is a well developed, well nourished patient who is awake, alert, sp3 and in no acute distress. Head/Face: Normocephalic, atraumatic. Eyes: Pupils equal round and reactive to light, extra-ocular motions intact. Lids and lashes normal. Conjunctiva and sclera are non-icteric and not injected. Cornea within normal limits. Periorbital areas with no swelling, redness, or edema. Neck: Trachea midline, no thyromegaly or masses palpated, and no cervical lymphadenopathy. Supple, full range of motion without nuchal rigidity, or vertebral point tenderness. No Meningismus. Chest/axilla: Normal chest wall appearance and motion. Nontender with no deformity. No lesions are appreciated. Respiratory: Lungs have equal breath sounds bilaterally, clear to auscultation and percussion. No rales, rhonchi or wheezes noted. No increased work of breathing, no retractions or nasal flaring. Skin: Warm, dry with normal turgor. Normal color with no rashes, no lesions, and no evidence of cellulitis. 15:56 Abdomen/GI: Soft nontender (no grimace), nondistended, Vital Signs: 15:40 BP 111 / 73; Pulse 101; Resp 16; Pulse Ox 95% on R/A; db 15:42 BP 96 / 71; Pulse 103; Resp 19; Temp 100; Pulse Ox 96% ; Weight 52.16 kg; ap3 16:00 BP 110 / 69; Pulse 95; Resp 16; Pulse Ox 96% on R/A; db 16:30 BP 108 / 69; Pulse 99; Resp 16; Pulse Ox 96% on R/A; db 17:30 BP 108 / 66; Pulse 96; Resp 16; Pulse Ox 98% on R/A; db 18:30 BP 140 / 61; Pulse 72; Resp 18; Pulse Ox 97% on R/A; db 19:30 BP 94 / 75; Pulse 94; Resp 18; Pulse Ox 96% ; jj7 20:30 BP 103 / 70; Pulse 92; Resp 16; Pulse Ox 96% ; jj7 21:15 BP 109 / 68; Pulse 86; Resp 16; Temp 98.1; Pulse Ox 96% on R/A; rv [place] Coma Score: 21:15 Eye Response: spontaneous(4). Motor Response: obeys commands(6). Verbal Response: rv oriented(5). Total: 15. MDM: 15:22 Patient medically screened. sp3 15:57 Data reviewed: vital signs, nurses notes, old medical records, lab test result(s), sp3 radiologic studies. ED course: Discussed case with parents. Patient will be admitted to Dr. Huerta with surgical consultation with CT pending.. 18:20 ED course: CT demonstrates no obstruction however large stool burden. We will continue sp3 admission and Dr. Johnston to see him tomorrow. I spoke to him earlier and knows about his admission.. 08/28 15:20 Order name: CBC with Diff; Complete Time: 16:24 sp3 08/28 15:20 Order name: CMP; Complete Time: 16:24 sp3 08/28 15:20 Order name: Lipase; Complete Time: 16:24 sp3 08/28 15:20 Order name: Urinalysis w/ reflexes; Complete Time: 16:47 sp3 08/28 15:20 Order name: CT Abd/Pelvis - IV Contrast Only; Complete Time: 18:17 sp3 08/28 15:20 Order name: IV Saline Lock; Complete Time: 15:42 sp3 08/28 15:20 Order name: Labs collected and sent; Complete Time: 15:42 sp3 08/28 15:20 Order name: NPO; Complete Time: 15:42 sp3 Administered Medications: 15:48 Drug: NS 0.9% IV 1000 ml IV at 1 bolus Per protocol; 1000 mL bolus Route: IV; Rate: 1 kc6 bolus; Site: right forearm; Disposition Summary: 08/28/23 18:23 Hospitalization Ordered Notes: Hospitalization Status: Inpatient Admission sp3 Provider: Raulito Huerta sp3 Location: Telemetry/MedSur (observation) sp3 Condition: Stable sp3 Problem: an acute exacerbation sp3 Symptoms: are unchanged sp3 Bed/Room Type: Standard sp3 Room Assignment: 209(08/28/23 20:50) kl Diagnosis - Constipation, ileus, generalized weakness sp3 Forms: - Medication Reconciliation Form sp3 - SBAR form sp3 - Leadership Thank You Letter sp3 Signatures: Dispatcher [employer] Cyndi Kitchen RN RN kl Prokisch, Amanda, RN RN ap3 Turner Sky MD MD sp3 Adelaide Del Toro RN RN [id number] Brown, Sophia, PA-C PAJose sb4 Corrections: (The following items were deleted from the chart) 20:50 18:23 sp3 kl
--- NOTE | 2023-08-28 21:19 | P.HP ---
Certification for Inpatient Patient admitted to: Inpatient With expected LOS: <2 Midnights Patient will require the following post-hospital care: None Practitioner: I am a practitioner with admitting privileges, knowledge of patient current condition, hospital course, and medical plan of care. Services: Services provided to patient in accordance with Admission requirements found in Title 42 Section 412.3 of the Code of Federal Regulations Patient History Date of Service: 08/29/23 Reason for admission: Nausea vomiting History of Present Illness: 38-year-old male with a past medical history of cerebral palsy, scoliosis with lumbar instrumentation, spasticity, constipation presents to the emergency room with nausea, vomiting. Worse with p.o. intake. No reported chills, dysuria, chest pain, shortness of breath, cough. He is wheelchair-bound, is normally alert and oriented as baseline, patient has a baclofen pump for spasticity, father reports patient takes Adderall to help increase alertness. Patent has daily fecal digital inpaction by parents. KUB IMPRESSION: Findings would favor a moderately severe ileus. CT imaging may be considered symptomology persists. CT of the abdomen IMPRESSION: Large stool burden in the rectum with wall thickening suggestive of stercoral proctitis.Up to moderate stool burden elsewhere in the colon.Laboratory evaluation leukocytosis 12.90, early left shift 89.8, UA unremarkable, CMP unremarkable, lipase normal at 14 Allergies Penicillins Adverse Reaction (Verified 08/15/23 01:58) Nausea/Vomiting Home Medications: Dextroamphetamine/Amphetamine [Adderall 20 mg Tablet] 20 mg PO BID 03/12/21 Docusate Sodium [Colace] 10 ml PO BID #473 ml 08/17/23 levoFLOXacin [Levaquin] 750 mg PO DAILY #10 tab 08/17/23 - Past Medical/Surgical History Diabetic: No -: Cerebral Palsy -: Paraplegia - Social History Alcohol use: No CD- Drugs: No Caffeine use: No Review of Systems 10-point ROS is otherwise unremarkable Physical Examination - Physical Exam General: Alert, In no apparent distress, Oriented x3 HEENT: Atraumatic, Normocephalic, PERRLA, Mucous membr. moist/pink Neck: Supple, 2+ carotid pulse no bruit Respiratory: Clear to auscultation bilaterally, Normal air movement Cardiovascular: No edema, Normal pulses Capillary refill: <2 Seconds Gastrointestinal: Hypoactive, Other (Nausea vomiting poor p.o. intake) Musculoskeletal: Scoliosis, Other Integumentary: No rashes, No breakdown Neurological: Other (At baseline orientated x3), Abnormal gait, Abnormal speech - Studies Laboratory Data (last 24 hrs) 08/28/23 08/28/23 15:40 15:40 WBC 12.90 H Hgb 15.7 Hct 46.4 Plt Count 303 Sodium 136 Potassium 3.7 BUN 11 Creatinine 0.67 L Glucose 116 H Total Bilirubin 0.5 AST 19 ALT 29 Alkaline Phosphatase 49 Lipase 14 Assessment and Plan - Plan Assessment and plan Leukocytosis Large stool burden in the rectum with wall thickening suggestive of stercoral proctitis moderately severe ileus. Surgery consult, patient sees Dr. Johnston in the wound care PCP as Dr. Huerta, recommends colonoscopy if possible while inpatient IV cefepime, as needed antiemetics, IV fluids infectious disease consult Trend cultures cultures, KUB IMPRESSION: Findings would favor a moderately severe ileus. CT of the abdomen IMPRESSION: Large stool burden in the rectum with wall thickening suggestive of stercoral proctitis.Up to moderate stool burden elsewhere in the colon.Laboratory evaluation leukocytosis 12.90, early left shift 89.8, UA unremarkable, CMP unremarkable, lipase normal at 14 Trend cultures, UA is pending, Cerebral palsy Constipation Spasticity on the baclofen pump, as needed stool softeners Scoliosis-spinal instrumentation Wheelchair dependent Fall precautions, total care, set up for meals Resume appropriate home meds N.p.o. Full code DVT SCDs Discharge Plan: Home Plan to discharge in: 48 Hours Discharge Plan: Home Plan to discharge in: 48 Hours - Advance Directives Does patient have a Living Will: No Does patient have a Durable POA for Healthcare: No - Code Status/Comfort Care Code Status: Full Code Physician Review: Patient Assessed, Agree with Above Assessment and Plan Critical Care: No Time Spent Managing Pts Care (In Minutes): 50
[2023-08-28] MEDS ORDERED: ONDANSETRON 4 MG/2 ML VIAL IV PRN (22:14)
[2023-08-28] MEDS: CEFEPIME 1 GM in NA CHLORIDE 0.9% 100 ML IV SCH (23:24)
[2023-08-28] MEDS: D5 0.45 NS 1,000 ML IV SCH (23:24)
[2023-08-28 23:35] VITALS: O2SAT 96
[2023-08-29 02:43] LABS: Absolute Lymphocytes (CBC) 1.2 K/uL (0.7-4.9); Hematocrit 39.2 % (39.6-49.0); Lymphocytes % 17.2 % (15.3-44.8); MCV 86.6 fL (80-100); Platelets 255 thou/uL (152-406); RBC Red Blood Cell Count 4.52 M/uL (4.33-5.43)
[2023-08-29 03:34] LABS: Albumin 2.6 g/dL (3.4-5.0); Bilirubin Total 0.3 mg/dL (0.2-1.0); Magnesium 2.1 mg/dL (1.6-2.4); Potassium 3.4 mEq/L (3.5-5.1); Protein, Total 5.7 g/dL (6.4-8.2)
[2023-08-29] MEDS: KCL 20 MEQ/100 mL IVPB 20 MEQ/100 ML BAG IV SCH ×2 (06:01→10:06)
--- NOTE | 2023-08-29 08:08 | P.CNS ---
Date of Consult: 08/29/23 Reason for Consult: leukocytosis, possible proctitis Chief Complaint: Nausea vomiting History of Present Illness: Patient is a 38-year-old male with a past medical history of cerebral palsy, scoliosis with lumbar instrumentation, constipation who presented to the ED with complaints of nausea and vomiting. XR abomen "Findings would favor a moderately severe ileus. CT imaging may be considered symptomology persists." CT abdomen pelvis showing "Large stool burden in the rectum with wall thickening suggestive of stercoral proctitis. Up to moderate stool burden elsewhere in the colon." Allergies Penicillins Adverse Reaction (Verified 08/15/23 01:58) Nausea/Vomiting Home medications list reviewed: Yes Home Medications: Dextroamphetamine/Amphetamine [Adderall 20 mg Tablet] 20 mg PO BID 03/12/21 Docusate Sodium [Colace] 10 ml PO BID #473 ml 08/17/23 levoFLOXacin [Levaquin] 750 mg PO DAILY #10 tab 08/17/23 - Past Medical/Surgical History Diabetic: No -: Cerebral Palsy -: Paraplegia - Social History Alcohol use: No CD- Drugs: No Caffeine use: No Place of Residence: Home Review of Systems 10-point ROS is otherwise unremarkable Gastrointestinal: Constipation Physical Examination Temp Pulse Resp BP Pulse Ox 97.6 F 75 16 95/50 L 96 08/29/23 04:00 08/29/23 04:00 08/29/23 04:00 08/29/23 04:00 08/29/23 04:00 General: Alert, In no apparent distress HEENT: Atraumatic, Normocephalic, Other (dry mucous membranes) Respiratory: Clear to auscultation bilaterally, Normal air movement Cardiovascular: Normal pulses, Regular rate/rhythm Gastrointestinal: Hypoactive, No tenderness Musculoskeletal: Contractures Integumentary: Pressure ulcer (Left heel stage 2. Right ankle stage 2. ) Neurological: Other (cerebral palsy) Laboratory Data - Reviewed Microbiology Data - Reviewed Imagings Data: - Reviewed Conclusions/Impression: Problem List Chronic Constipation Stool Impaction Cerebral Palsy Scoliosis Chronic Constipation Stool Impaction - No reported blood or mucus in the stool. Patient with chronic constipation requiring manual disimpactions at home. He presented with nausea and vomiting which the patient reports has resolved at this time. + rectal pressure/pain. - CT abdomen pelvis 08/28: "Large stool burden in the rectum with wall thickening suggestive of stercoral proctitis. Up to moderate stool burden elsewhere in the colon." - Leukocytosis resolved. Afebrile Recommendations CT abdomen showing large stool burden, rectal wall thickening suggestive of stercoral proctitis. Patient with chronic constipation who requires manual disimpactions at home. - Recommend continuing with manual fecal disimpaction and aggressive bowel regimen - Pressure Ulcer left heel and right ankle: Cover with foam dressing. Pressure offloading measures. - Maintain adequate hydration - Discontinue Cefepime. Case discussed with Mouna Cade
[2023-08-29] MEDS: D5 0.45 NS 1,000 ML IV SCH ×2 (08:14→23:22)
[2023-08-29] MEDS ORDERED: INFLUENZA VACCINE (for 6+ mo) 0.5 ML DOSE IMVAC ONE (09:00)
[2023-08-29] MEDS: CEFEPIME 1 GM in NA CHLORIDE 0.9% 100 ML IV SCH (10:05)
--- NOTE | 2023-08-29 11:42 | CON ---
Date of Consultation: 08/28/2023 Reason For Consultation: Constipation. History Of Present Illness: Patient is a 38-year-old gentleman with cerebral palsy, scoliosis, spast icity and chronic history of constipation, presented to the emergency room with nausea and vomiting a nd worse with p.o. intake. He did have a solid bowel movement yesterday and is passing gas, but has not thrown up, this morning, and no nausea, either. No sore throat, runny nose, cough, headaches, or dizziness. No chest pain. No fever or chills. Patient has daily fecal disimpaction by the parents . The patient had an x-ray which showed ileus and CT did not show any significant ileus, but did josefina w fecal impaction and large stool burden. Patient denies any sore throat, runny nose, cough, headach es, dizziness, chest pain, fever, or chills. Review of Systems: Otherwise, unremarkable. Past Medical History: Cerebral palsy and paraplegia. Past Surgical History: Back surgery and baclofen pump. Allergies: PENICILLIN. Social History: Patient does not smoke or drink alcohol. Family History: Noncontributory. Physical Examination: Vital Signs: Stable. His blood pressure is systolic of 95 to 109, heart rate is 75. I's and O's re vealed no bowel movement today. He did have one yesterday. Laboratory Data: His white count is normal. There is no left shift. Chemistry reviewed and urinaly sis reviewed. CT of the abdomen and pelvis reviewed shows a large stool burden in the rectum with wa ll thickening suggestive of proctitis up to moderate stool burden also in the colon. He does have so ft tissue nodule along the inguinal canal, larger on the right, suggestive of undescended testes. Assessment: 38-year-old gentleman with cerebral palsy with the severe constipation and stool impacti on. Recommendation: Manual disimpaction and tap water enemas. Clear liquid diet. Serial abdominal exam , and once he has a good bowel movement, he is doing well, he can be discharged home from [facility]. There is no need for any surgical intervention at this time. /MODL Voice ID: [id number] Report ID: [id number]
[2023-08-29] MEDS ORDERED: GOLYTELY 4000 ML PO ONE (12:00)
--- NOTE | 2023-08-29 12:03 | P.PN ---
Subjective Date of Service: 08/29/23 Chief Complaint: Stool impaction Patient is 38 years of age history of cerebral palsy admitted with stool impaction Review of Systems is unable to be obtained Physical Examination - Vital Signs Temperature: 98.5 F Blood Pressure: 106/74 Pulse: 86 Respirations: 14 Pulse Ox (%): 97 - Physical Exam General: Alert, Cooperative Respiratory: Clear to auscultation bilaterally Cardiovascular: No edema Gastrointestinal: Normal bowel sounds, Soft and benign, Non-distended - Studies Laboratory Data (last 24 hrs) 08/28/23 08/28/23 15:40 15:40 WBC 12.90 H Hgb 15.7 Hct 46.4 Plt Count 303 Sodium 136 Potassium 3.7 BUN 11 Creatinine 0.67 L Glucose 116 H Total Bilirubin 0.5 AST 19 ALT 29 Alkaline Phosphatase 49 Lipase 14 Assessment And Plan - Current Problems (Diagnosis) (1) Impacted stool in rectum Current Visit: Yes Status: Acute Plan: Patient is a 38 years of age with history of cerebral palsy admitted with stool impaction mother to manually evacuate the stool cussed with Dr. Johnston plan for Colace Reglan GoLytely liquid diet patient to go on a high-fiber diet at home evidence of infection DC antibiotic no signs are stable urinalysis is negative for infection stable discharge a.m. Physician Review: Patient Assessed, Agree with Above Assessment and Plan
[2023-08-29] MEDS: METOCLOPRAMIDE 10MG/10ML UCUP PO SCH ×2 (13:20→17:41)
[2023-08-29] MEDS: DOCUSATE NA 100 MG CAP PO SCH ×2 (13:20→20:43)
[2023-08-29] MEDS ORDERED: CEFEPIME 2 GM in NA CHLORIDE 0.9% 100 ML IV SCH (17:00)
[2023-08-29] MEDS: JUVEN PACKET PO SCH (20:43)
[2023-08-29 21:57] VITALS: BMI 19.3
[2023-08-30] MEDS: METOCLOPRAMIDE 10MG/10ML UCUP PO SCH ×3 (00:27→12:00)
[2023-08-30] MEDS: D5 0.45 NS 1,000 ML IV SCH (04:14)
--- NOTE | 2023-08-30 08:11 | RAD REPORT ---
EXAM DESCRIPTION: RAD - Abdomen 1 View (KUB) - 08/30/2023 5:50 am CLINICAL HISTORY: Abdomen pain FINDINGS: Since the prior exam the stool within the rectosigmoid colon has been evacuated. Bowel gas pattern unremarkable. Neurostimulator device in place
--- NOTE | 2023-08-30 08:22 | P.PN ---
Date of Service: 08/30/23 Chief Complaint: Nausea vomiting Subjective: Patient seen and examined at bedside. In no apparent distress. No acute events reported overnight. Improvement in abdominal pain. Denies nausea or vomiting. Physical Examination Temp Pulse Resp BP Pulse Ox 97.1 F 71 16 113/60 98 08/30/23 04:00 08/30/23 04:00 08/30/23 04:00 08/30/23 04:00 08/30/23 04:00 General: Alert, In no apparent distress HEENT: Atraumatic, Normocephalic. Dry mucous membranes Respiratory: Clear to auscultation bilaterally, Normal air movement Cardiovascular: Normal pulses, Regular rate/rhythm Gastrointestinal: Hypoactive, No tenderness Musculoskeletal: Contractures Integumentary: Left heel pressure injury stage 2; Right ankle stage 2. Neurological: Cerebral palsy Laboratory Data - Reviewed Microbiology Data - Reviewed Imagings Data: - Reviewed Medications List: Reviewed Assessment and Plan Problem List Chronic Constipation Stool Impaction Cerebral Palsy Scoliosis Chronic Constipation Stool Impaction - No reported blood or mucus in the stool. Patient with chronic constipation requiring manual disimpactions at home. - CT abdomen pelvis 08/28: "Large stool burden in the rectum with wall thickening suggestive of stercoral proctitis. Up to moderate stool burden elsewhere in the colon." - Leukocytosis resolved. Afebrile - KUB XR 08/30: "Since the prior exam the stool within the rectosigmoid colon has been evacuated. Bowel gas pattern unremarkable. Neurostimulator device in place." Recommendations CT abdomen showing large stool burden, rectal wall thickening suggestive of stercoral proctitis. Patient with chronic constipation who requires manual disimpactions at home. KUB showing improvement from prior exam. - Recommend continuing with manual fecal disimpaction and bowel regimen at home - Pressure Ulcer left heel and right ankle: Cover with foam dressing. Pressure offloading measures. Case discussed with Mouna Cade
--- NOTE | 2023-08-30 08:56 | P.DS ---
Admission Date: 08/28/23 Discharge Date: 08/30/23 Disposition: ROUTINE DISCHARGE Discharge Condition: GOOD Reason for Admission: Nausea vomiting - Problems (1) Impacted stool in rectum Current Visit: Yes Status: Acute Brief History of Present Illness: Patient is 38 years of age with cerebral palsy admitted with stool impaction Hospital Course: He was admitted to the hospital treated with manual impaction GoLytely and Colace and he did well was seen by Dr. Johnston at the time of discharge he was alert very comfortable and has some decubitus wounds and is seen outpatient by Dr. Vickie santos with the mother stable to be discharged/patient is on high fiber diet of added some Reglan to take Colace at home to be was unremarkable at discharge CT scan findings Large stool burden in the rectum with wall thickening suggestive of stercoral proctitis. Up to moderate stool burden elsewhere in the colon. Vital Signs/Physical Exam: Temp Pulse Resp BP Pulse Ox 97.1 F 71 16 113/60 98 08/30/23 04:00 08/30/23 04:00 08/30/23 04:00 08/30/23 04:00 08/30/23 04:00 Laboratory Data at Discharge: WBC 7.10 thou/uL (4.3-10.9) 08/29/23 02:05 Hgb 13.3 g/dL (13.6-17.9) L D 08/29/23 02:05 Hct 39.2 % (39.6-49.0) L 08/29/23 02:05 Plt Count 255 thou/uL (152-406) 08/29/23 02:05 Sodium 139 mEq/L (136-145) 08/29/23 02:05 Potassium 3.4 mEq/L (3.5-5.1) L 08/29/23 02:05 BUN 10 mg/dL (7-18) 08/29/23 02:05 Creatinine 0.57 mg/dL (0.70-1.30) L 08/29/23 02:05 Glucose 121 mg/dL (74-106) H 08/29/23 02:05 Magnesium 2.1 mg/dL (1.6-2.4) 08/29/23 02:05 Total Bilirubin 0.3 mg/dL (0.2-1.0) 08/29/23 02:05 AST 17 U/L (15-37) 08/29/23 02:05 ALT 21 U/L (16-61) 08/29/23 02:05 Alkaline Phosphatase 39 U/L (45-117) L D 08/29/23 02:05 Lipase 14 U/L (13-75) 08/28/23 15:40 Home Medications: Dextroamphetamine/Amphetamine [Adderall 20 mg Tablet] 20 mg PO BID 03/12/21 Docusate Sodium [Colace] 10 ml PO BID #473 ml 08/17/23 Metoclopramide [Reglan] 5 mg PO TID 10 Days #30 tab 08/30/23 New Medications: Metoclopramide [Reglan] 5 mg PO TID 10 Days #30 tab Physician Discharge Instructions: Remove dressing and may shower Keep Steri-Strips on at all times Incentive spirometry as instructed Discharge medications per Dr. Friend No heavy lifting or strenuous exercise My office 1 week, call for appointment Activity as tolerated, no heavy lifting Diet: AHA Activity: No lifting more than 10 lbs Followup: Raulito Huerta MD [Primary Care Provider] - Ramy Johnston MD [ACTIVE - CAN ADMIT] - 1 Week
[2023-08-30] MEDS: JUVEN PACKET PO SCH (09:00)
[2023-08-30] MEDS: DOCUSATE NA 100 MG CAP PO SCH (09:54)
--- NOTE | 2023-08-30 10:06 | PN ---
Date of Progress Note: 08/30/2023 Subjective: Patient is awake, alert. No complaints. Objective: Vital Signs: Stable, afebrile. GI: The patient had multiple bowel movements yesterday. His abdomen is benign. No evidence of tony tonitis. Laboratory Data: Reviewed. Assessment: Impaction with constipation, abdominal pain, slowly resolving. Recommendation: Slowly advance diet. Continue enemas as needed, disimpaction as needed, stool softe ners. High-fiber diet. Bowel regimen. Reconsult Surgery p.r.n. The patient is cleared from [facility] for discharge. /MODL Voice ID: [id number] Report ID: [id number]
[2023-08-30 13:00] VITALS: BP 113/55; TEMP 98.6
== END 2023-08-30 12:55 | disposition home or self-care (01) ==
LOC: ER 15:16 → ERHOLD 18:27 → 2ND 21:11
PROVIDERS: ADMIT Internal Medicine Sleep Medicine; ATTEND Internal Medicine Sleep Medicine
DX: K56.41 Fecal impaction (principal); K59.00 Constipation, unspecified; R11.2 Nausea with vomiting, unspecified; R53.1 Weakness; K56.7 Ileus, unspecified; G80.9 Cerebral palsy, unspecified; M41.9 Scoliosis, unspecified; D72.829 Elevated white blood cell count, unspecified; R25.2 Cramp and spasm; G82.20 Paraplegia, unspecified; Z88.0 Allergy status to penicillin
CPT/HCPCS: 87070; 85025 ×2; 81001; 36415; 83735; 87205; 82947; 83690; 80053 ×2; 74177; 74018; 99285; Q9967; J3480 ×2; J2405 ×2; J7799 ×3; J7030; J0692 ×2; G0378

== ENCOUNTER 2023-10-24 10:40 | Emergency (ER) | payer BC, OTHER ==
[2023-10-24] MEDS ORDERED: levETIRAcetam 1,000 MG in NA CHLORIDE 0.9% 100 ML IV ONE (11:00)
--- NOTE | 2023-10-24 11:33 | RAD REPORT ---
EXAM DESCRIPTION: CT - Head Brain Wo Cont - 10/24/2023 10:53 am CLINICAL HISTORY: SEIZURE COMPARISON: Head Brain Wo Cont dated 08/14/2023; Head Brain Wo Cont dated 02/19/2023 TECHNIQUE: Noncontrast head CT images were obtained without IV contrast. Multiplanar reformats were generated and reviewed. All CT scans are performed using dose optimization technique as appropriate and may include automated exposure control or mA/KV adjustment according to patient size. FINDINGS: No intracranial hemorrhage, mass, or edema. Midline structures are unremarkable. Mild diffuse parenchymal volume loss. Ventricular caliber is stable. Hinojosa-white matter differentiation is preserved, without evidence of acute infarct. No abnormal extra- axial fluid collections. Mastoid air cells and visualized portions of the paranasal sinuses are clear. No acute bony findings. IMPRESSION: No evidence of an acute intracranial process.
--- NOTE | 2023-10-24 11:43 | RAD REPORT ---
EXAM DESCRIPTION: RADChest Single View10/24/2023 11:15 am CLINICAL HISTORY: COUGH COMPARISON: Abdomen 1 View (KUB) dated 08/30/2023; Chest Single View dated 08/14/2023; Chest Single V iew dated 02/19/2023 TECHNIQUE: Portable AP view of the chest. FINDINGS: The lungs are clear. No pneumothorax or effusion. The cardiomediastinal contours are unre markable. Extensive thoracolumbar fusion hardware in place. IMPRESSION: No acute cardiopulmonary process.
[2023-10-24 12:09] LABS: Absolute Lymphocytes (CBC) 1.2 K/uL (0.7-4.9); Hematocrit 48.1 % (39.6-49.0); Lymphocytes % 10.1 % (15.3-44.8); MCV 86.6 fL (80-100); MPV 7.8 fL (7.6-11.3); Platelets 296 thou/uL (152-406); RBC Red Blood Cell Count 5.55 M/uL (4.33-5.43)
[2023-10-24 12:13] LABS: Protime INR 1.14
[2023-10-24 12:29] LABS: Albumin 3.6 g/dL (3.4-5.0); Bilirubin Direct 0.2 mg/dL (0-0.2); Bilirubin Indirect, Calculated 0.4 mg/dL (0.2-0.8); Bilirubin Total 0.6 mg/dL (0.2-1.0); Magnesium 2.4 mg/dL (1.6-2.4); Potassium 4.5 mEq/L (3.5-5.1); Protein, Total 7.6 g/dL (6.4-8.2); Troponin High Sensitivity 3.8 pg/mL (<58.9)
[2023-10-24] MEDS ORDERED: NA CHLORIDE 0.9% 1,000 ML ONE (12:32)
--- NOTE | 2023-10-24 12:56 | EDPHYS ---
Physician Documentation [facility] Name: Johann Garrison Age: 38 yrs Sex: Male : 1985 Arrival Date: 10/24/2023 Time: 10:40 Bed 2 Private MD: CURTIS Physician Alonso Escobar HPI: 10/24 10:47 This 38 yrs old Male presents to ER via EMS with complaints of Seizure. ross 10:47 The patient presents after having a single isolated seizure, that lasted 30 second(s). ross Character of seizure(s): Loss of consciousness: the patient experienced loss of consciousness, Motor activity: generalized, Incontinence: none, Apnea: the patient did not experience apnea, Circulation: the patient did not experience evidence of pulse disturbance. Seizure onset: just prior to arrival. Context: the seizure(s) was witnessed, by family, father, occurred at home. Seizure Hx: Last seizure: The patient's last seizure was approximately 2 week(s) ago. Associated injury: The patient did not suffer any apparent associated injury. EMS care: none. The patient has not experienced similar symptoms in the past. Historical: - Allergies: 10:47 PENICILLINS; ph - Home Meds: 10:47 Adderall XR Oral [Active]; baclofen pump LLQ [Active]; ph - PMHx: 10:47 Cerebral Palsy; scoliosis; ph - PSHx: 10:47 back sx; ph - Immunization history:: Adult Immunizations unknown. - Social history:: Smoking status: Patient denies any tobacco usage or history of. ROS: 10:50 Constitutional: Negative for fever, chills, and weight loss, Eyes: Negative for injury, ross pain, redness, and discharge, ENT: Negative for injury, pain, and discharge, Neck: Negative for injury, pain, and swelling, Cardiovascular: Negative for chest pain, palpitations, and edema, Respiratory: Negative for shortness of breath, cough, wheezing, and pleuritic chest pain, Abdomen/GI: Negative for abdominal pain, nausea, vomiting, diarrhea, and constipation, Back: Negative for injury and pain, : Negative for injury, bleeding, discharge, and swelling, MS/Extremity: Negative for injury and deformity, Skin: Negative for injury, rash, and discoloration, Psych: Negative for depression, anxiety, suicide ideation, homicidal ideation, and hallucinations, Allergy/Immunology: Negative for hives, rash, and allergies, Endocrine: Negative for neck swelling, polydipsia, polyuria, polyphagia, and marked weight changes, Hematologic/Lymphatic: Negative for swollen nodes, abnormal bleeding, and unusual bruising, 10:50 Neuro: Positive for seizure activity, Exam: 10:50 Constitutional: This is a well developed, well nourished patient who is awake, alert, ross and in no acute distress. Head/Face: Normocephalic, atraumatic. Eyes: Pupils equal round and reactive to light, extra-ocular motions intact. Lids and lashes normal. Conjunctiva and sclera are non-icteric and not injected. Cornea within normal limits. Periorbital areas with no swelling, redness, or edema. ENT: Nares patent. No nasal discharge, no septal abnormalities noted. Tympanic membranes are normal and external auditory canals are clear. Oropharynx with no redness, swelling, or masses, exudates, or evidence of obstruction, uvula midline. Mucous membranes moist. Neck: Trachea midline, no thyromegaly or masses palpated, and no cervical lymphadenopathy. Supple, full range of motion without nuchal rigidity, or vertebral point tenderness. No Meningismus. Chest/axilla: Normal chest wall appearance and motion. Nontender with no deformity. No lesions are appreciated. Cardiovascular: Regular rate and rhythm with a normal S1 and S2. No gallops, murmurs, or rubs. Normal PMI, no JVD. No pulse deficits. Respiratory: Lungs have equal breath sounds bilaterally, clear to auscultation and percussion. No rales, rhonchi or wheezes noted. No increased work of breathing, no retractions or nasal flaring. Abdomen/GI: Soft, non-tender, with normal bowel sounds. No distension or tympany. No guarding or rebound. No evidence of tenderness throughout. Back: No spinal tenderness. No costovertebral tenderness. Full range of motion. Male : Normal genitalia with no discharge or lesions. Skin: Warm, dry with normal turgor. Normal color with no rashes, no lesions, and no evidence of cellulitis. MS/ Extremity: Pulses equal, no cyanosis. Neurovascular intact. Full, normal range of motion. Neuro: Awake and alert, GCS 15, oriented to person, place, time, and situation. Cranial nerves II-XII grossly intact. Motor strength 5/5 in all extremities. Sensory grossly intact. Cerebellar exam normal. Normal gait. Psych: Awake, alert, with orientation to person, place and time. Behavior, mood, and affect are within normal limits. 11:40 ECG was reviewed by the Attending Physician. [facility] Vital Signs: 10:42 BP 113 / 75; Pulse 74; Resp 18; Temp 97.5; Pulse Ox 98% on R/A; ph 12:00 BP 122 / 82; Pulse 75; Resp 18; Pulse Ox 99% on R/A; ph 13:00 BP 117 / 75; Pulse 81; Resp 18; Pulse Ox 98% on R/A; ph Fely Coma Score: 10:47 Eye Response: spontaneous(4). Motor Response: obeys commands(6). Verbal Response: ph oriented(5). Total: 15. MDM: 10:42 Patient medically screened. [facility] 10:52 Differential Diagnosis altered mental status, sepsis, flu. Differential diagnosis: [facility] cerebral vascular accident, cardiac arrhythmia, seizure, TIA. Data reviewed: vital signs, nurses notes, lab test result(s), EKG, radiologic studies, CT scan, plain films. Consideration of Admission/Observation Escalation of care including admission/observation considered. I considered the following discharge prescriptions or medication management in the emergency department Medications were administered in the Emergency Department. See MAR. Test considered but Not performed: MRI: NO MRI BRAIN. Care significantly affected by the following chronic conditions: SEIZURES, VAGAL NERVE STIM , CEREBRAL PALSY. 10/24 10:44 Order name: Basic Metabolic Panel; Complete Time: 12:55 [facility] 10/24 10:44 Order name: CBC with Diff; Complete Time: 12:55 [facility] 10/24 10:44 Order name: LFT's; Complete Time: 12:55 [facility] 10/24 10:44 Order name: Magnesium; Complete Time: 12:55 [facility] 10/24 10:44 Order name: NT PRO-BNP; Complete Time: 12:55 [facility] 10/24 10:44 Order name: PT-INR; Complete Time: 12:55 [facility] 10/24 10:44 Order name: Troponin HS; Complete Time: 12:55 [facility] 10/24 10:44 Order name: XRAY Chest (1 view); Complete Time: 12:08 [facility] 10/24 10:44 Order name: CT Head Brain wo Cont; Complete Time: 11:40 [facility] 10/24 10:44 Order name: EKG; Complete Time: 10:45 [facility] 10/24 10:44 Order name: Cardiac monitoring; Complete Time: 10:49 [facility] 10/24 10:44 Order name: EKG - Nurse/Tech; Complete Time: 11:19 [facility] 10/24 10:44 Order name: IV Saline Lock; Complete Time: 12:04 [facility] 10/24 10:44 Order name: Labs collected and sent; Complete Time: 12:04 [facility] 10/24 10:44 Order name: O2 Per Protocol; Complete Time: 10:49 [facility] 10/24 10:44 Order name: O2 Sat Monitoring; Complete Time: 10:49 [facility] 10/24 10:44 Order name: Seizure Precautions; Complete Time: 10:49 [facility] EC:40 Rate is 77 beats/min. Rhythm is regular. QRS [place] is Normal. MT interval is normal. QRS ross interval is normal. QT interval is normal. No Q waves. T waves are Normal. No ST changes noted. Clinical impression: NSR w/ Non-specific ST/T Changes and No evidence of ischemia. Interpreted by me. Reviewed by me. Administered Medications: 12:04 Drug: Keppra IV 1000 mg IV at per protocol once Route: IV; Rate: per protocol; Site: ph right wrist; 12:30 Follow up: Response: No adverse reaction; IV Status: Completed infusion ph 12:58 Drug: NS 0.9% IV 500 ml IV at bolus once Route: IV; Rate: bolus; Site: right wrist; ph 13:36 Follow up: Response: No adverse reaction; IV Status: Completed infusion; IV Intake: ph 500ml 14:18 Not Given (Other Intervention Used): ativan0.5 mg IVP once ph Disposition Summary: 10/24/23 12:55 Discharge Ordered Notes: Location: Home ross Problem: new ross Symptoms: have improved ross Condition: Stable ross Diagnosis - Epileptic seizures related to external causes, not intractable ross Followup: ross - With: Private Physician - When: 2 - 3 days - Reason: Recheck today's complaints, Continuance of care, Re-evaluation by your physician Followup: ross - With: Fred Webb MD - When: 2 - 3 days - Reason: Recheck today's complaints, Re-evaluation by your physician Discharge Instructions: - Discharge Summary Sheet ross - Seizure, Adult ross - Seizure, Adult, Pmmt-[id number] [facility] Forms: - Medication Reconciliation Form ross - Thank You Letter ross - Antibiotic Education ross - Prescription Opioid Use ross - Patient Portal Instructions ross - Leadership Thank You Letter ross Prescriptions: - Keppra 500 mg Oral Tablet - take 1 tablet ORAL route every 12 hours; 20 tablet; Refills: 0, Product ross Selection Permitted Signatures: Dispatcher [employer] Alonso Da Silva MD MD cha Hall, Patricia RN RN ph
--- NOTE | 2023-10-24 12:56 | ER ---
Nurse's Notes [facility] Name: Johann Garrison Age: 38 yrs Sex: Male : 1985 Arrival Date: 10/24/2023 Time: 10:40 Bed 2 Private MD: Diagnosis: Epileptic seizures related to external causes, not intractable Presentation: 10/24 10:42 Chief complaint: EMS states: Pt from home, hx of cerebral palsy, nonfarm animal caretaker was helping ph him use the restroom, pt passed out while on toilet, then had seizure-like activity lasting approx 20 seconds, post-ictal upon EMS arrival, VSS, 12 lead normal, BGL 123, pt back to baseline mental status upon arrival to ED, family told EMS that pt has a hx of seizures, has an implanted stimulator, but has been having increasing amount of seizures for the past month. Coronavirus screen: Vaccine status: Patient reports being unvaccinated. Ebola Screen: No symptoms or risks identified at this time. Initial Sepsis Screen: Does the patient meet any 2 criteria? No. Patient's initial sepsis screen is negative. Does the patient have a suspected source of infection? No. Patient's initial sepsis screen is negative. Risk Assessment: Do you want to hurt yourself or someone else? Patient reports no desire to harm self or others. Onset of symptoms was October 24, 2023. 10:42 Method Of Arrival: EMS: [facility] 10:42 Acuity: VINAY 3 Triage Assessment: 10:47 General: Appears in no apparent distress. comfortable, slender, well groomed, Behavior ph is calm, cooperative. Pain: Denies pain. Neuro: Level of Consciousness is awake, alert, obeys commands, Oriented to person, place, time, situation, Pupils are PERRLA. Cardiovascular: Capillary refill < 3 seconds in bilateral fingers Patient's skin is warm and dry. Respiratory: Airway is patent Respiratory effort is even, unlabored. GI: No signs and/or symptoms were reported involving the gastrointestinal system. : No signs and/or symptoms were reported regarding the genitourinary system. Derm: Skin is pink, warm \T\ dry. dry, flaking skin noted to face. Musculoskeletal: Range of motion: limited in all extremities. Historical: - Allergies: 10:47 PENICILLINS; ph - Home Meds: 10:47 Adderall XR Oral [Active]; baclofen pump LLQ [Active]; ph - PMHx: 10:47 Cerebral Palsy; scoliosis; ph - PSHx: 10:47 back sx; ph - Immunization history:: Adult Immunizations unknown. - Social history:: Smoking status: Patient denies any tobacco usage or history of. Screenin:48 [facility] ED Fall Risk Assessment (Adult) History of falling in the last 3 months, ph including since admission No falls in past 3 months (0 pts) Confusion or Disorientation No (0 pts) Intoxicated or Sedated No (0 pts) Impaired Gait Yes (1 pt) Mobility Assist Device Used Yes (1 pt) Altered Elimination Yes (1 pt) Score/Fall Risk Level 3 or more points = High Risk Oriented to surroundings, Maintained a safe environment, Hourly rounding (assess needs \T\ fall precautionary measures) done, Used ambulatory aids as needed (educated on \T\ assisted with). Abuse screen: Denies threats or abuse. Denies injuries from another. Nutritional screening: No deficits noted. Tuberculosis screening: No symptoms or risk factors identified. Assessment: 11:00 General: SEE TRIAGE ASSESSMENT. ph 13:20 Reassessment: Patient appears in no apparent distress at this time. Patient and/or ph family updated on plan of care and expected duration. Pain level reassessed. Patient is alert, oriented x 3, equal unlabored respirations, skin warm/dry/pink. Pt placed up for d/c, caregiver at bedside states that father will be here w/ wheelchair van at \T\ 1400. Vital Signs: 10:42 BP 113 / 75; Pulse 74; Resp 18; Temp 97.5; Pulse Ox 98% on R/A; ph 12:00 BP 122 / 82; Pulse 75; Resp 18; Pulse Ox 99% on R/A; ph 13:00 BP 117 / 75; Pulse 81; Resp 18; Pulse Ox 98% on R/A; ph Reading Coma Score: 10:47 Eye Response: spontaneous(4). Motor Response: obeys commands(6). Verbal Response: ph oriented(5). Total: 15. ED Course: 10:41 Patient arrived in ED. ph 10:42 Alonso Escobar MD is Attending Physician. ross 10:46 Triage completed. ph 10:47 Arm band placed on Patient placed in an exam room. ph 10:48 Patient has correct armband on for positive identification. Client placed on continuous ph cardiac and pulse oximetry monitoring. NIBP monitoring applied. Door closed. Noise minimized. Warm blanket given. 10:49 Seizure precautions initiated. ph 10:54 CT Head Brain wo Cont In Process Unspecified. EDMS 11:00 Nora Gonzalez, RN is Primary Nurse. ph 11:17 XRAY Chest (1 view) In Process Unspecified. EDMS 11:19 EKG done, by ED staff, reviewed by Alonso Escobar MD. Missed attempt(s): 24 gauge in ph right hand. Bleeding controlled, band aid applied, catheter tip intact. 12:00 Inserted saline lock: 22 gauge in right wrist, using aseptic technique. Blood collected.ph 12:55 Fred Webb MD is Referral Physician. ross 13:37 No provider procedures requiring assistance completed. ph 14:18 IV discontinued, intact, bleeding controlled, No redness/swelling at site. Pressure ph dressing applied. Administered Medications: 12:04 Drug: Keppra IV 1000 mg IV at per protocol once Route: IV; Rate: per protocol; Site: ph right wrist; 12:30 Follow up: Response: No adverse reaction; IV Status: Completed infusion ph 12:58 Drug: NS 0.9% IV 500 ml IV at bolus once Route: IV; Rate: bolus; Site: right wrist; ph 13:36 Follow up: Response: No adverse reaction; IV Status: Completed infusion; IV Intake: ph 500ml 14:18 Not Given (Other Intervention Used): ativan0.5 mg IVP once ph Medication: 10:49 VIS not applicable for this client. ph Intake: 13:36 IV: 500ml; Total: 500ml. ph Outcome: 12:55 Discharge ordered by . ross 14:18 Discharged to home via wheelchair, with family, ph 14:18 Condition: good 14:18 Discharge instructions given to family, skid man, Instructed on discharge instructions, follow up and referral plans. medication usage, Demonstrated understanding of instructions, follow-up care, medications, Prescriptions given X 1, 14:18 Patient left the ED. ph Signatures: Dispatcher [employer] Alonso Da Silva MD MD cha Hall, Patricia, RN RN ph
[2023-10-24 14:26] VITALS: BP 117/75; TEMP 97.5; O2SAT 98
--- NOTE | 2023-10-25 15:22 | EKG ---
Test Date: 2023-10-24 Test Time: 11:16:35 Fur Trimmer: DOREEN MEASUREMENT RESULTS: Intervals: Rate: 77 OR: 120 QRSD: 78 QT: 402 QTc: 454 [place]: P: 52 OR: 120 QRS: 77 T: 71 INTERPRETIVE STATEMENTS: Normal sinus rhythm Low voltage QRS Borderline ECG Compared to ECG 08/14/2023 22:09:03 Low QRS voltage now present Short OR interval no longer present Myocardial infarct finding no longer present Electronically Signed On 10-25-23 15:19:53 [employer]DEL [employer] APPRENTICE by Carlos Enrique Hwang
== END 2023-10-24 14:18 | disposition home or self-care (01) ==
LOC: ER 10:40
DX: G40.509 Epileptic seizures related to external causes, not intractable, without status epilepticus (principal); G80.9 Cerebral palsy, unspecified; Z88.0 Allergy status to penicillin
CPT/HCPCS: 96365; 96361; 93005; 85025; 80048; 36415; 83735; 85610; 80076; 84484; 83880; 70450; 71045; 99285; J1953; J7030